=== PATIENT | female | born 1960 | race Caucasian/White ===

== ENCOUNTER 2024-10-02 10:15 | Inpatient (IN) ==
[2024-10-02] MEDS: methylPREDNISolone SOD SUCC 125 MG/2 ML VIAL IV ONE (10:39)
[2024-10-02 11:18] LABS: Basophils # (Auto) 0.01 K/mcL (0.00-0.30); Basophils % (Auto) 0.1 % (0.0-2.0); Eosinophils # (Auto) 0 K/mcL (0.00-0.70); Eosinophils % (Auto) 0 % (0.0-7.0); Hematocrit 51.3 % (34.1-44.9); Lymphocytes # (Auto) 0.69 K/mcL (1.50-4.80); Mean Corpuscular HGB Conc 31.2 g/dL (31.0-36.0); Mean Platelet Volume 9.5 fL (8.8-12.5); Monocytes # (Auto) 0.49 K/mcL (0.10-0.90); Neutrophils % (Auto) 87.4 % (38.0-78.0); Platelet Count 153 K/mcL (140-440); RBC 5.03 M/mcL (3.59-5.38); Red Cell Distribution Width 14.4 % (11.5-14.5); WBC 9.9 K/mcL (4.5-11.0)
[2024-10-02] MEDS: IPRATROPIUM/ALBUTEROL 3 ML AMPUL.NEB NEB ONE (11:18)
[2024-10-02] MEDS: cefTRIAXone 1 GM VIAL IV ONE (11:18)
[2024-10-02 11:41] LABS: ALT/SGPT 17 U/L (<40); AST/SGOT 30 U/L (<32); Albumin 3.6 gm/dL (3.2-5.2); Albumin/Globulin Ratio 1.1 (1.0-2.3); Alkaline Phosphatase 95 U/L (39-117); Bilirubin,Total 0.5 mg/dL (0.1-1.0); Blood Urea Nitrogen 22 mg/dL (8-23); Calcium 9.3 mg/dL (8.6-10.4); Carbon Dioxide 26 mmol/L (22-30); Chloride 103 mmol/L (96-108); Globulin 3.2 gm/dL (2.2-3.7); Glomerular Filtration Rate 68; Glucose 100 mg/dL (70-105); Potassium 3.6 mmol/L (3.3-5.1); Sodium 141 mmol/L (133-145)
[2024-10-02] MEDS: AZITHROMYCIN 500 MG in 0.9 % SODIUM CHLORIDE 250 ML IV ONE (11:43)
[2024-10-02] MEDS ORDERED: oxyCODONE IR 5 MG TABLET PO PRN (12:38)
[2024-10-02] MEDS ORDERED: ZOLPIDEM 5 MG TABLET PO PRN (12:38)
[2024-10-02] MEDS ORDERED: IBUPROFEN 600 MG TABLET PO PRN (12:38)
[2024-10-02] MEDS ORDERED: ACETAMINOPHEN 325 MG TABLET PO PRN (12:38)
[2024-10-02] MEDS ORDERED: MAG HYDROX/AL HYDROX/SIMETH 30 ML ORAL.SUSP PO PRN (12:38)
[2024-10-02] MEDS ORDERED: MAGNESIUM HYDROXIDE 30 ML ORAL.SUSP PO PRN (12:38)
[2024-10-02] MEDS ORDERED: ONDANSETRON 4 MG/2 ML VIAL IV PRN (12:38)
[2024-10-02] MEDS ORDERED: LORazepam 1 MG TABLET PO PRN (12:38)
[2024-10-02] MEDS: 0.9 % SODIUM CHLORIDE 1,000 ML IV SCH (13:09)
[2024-10-02] MEDS: MAGNESIUM SULFATE 2 GM/50 ML BAG IV ONE (13:09)
[2024-10-02] MEDS: 0.9 % SODIUM CHLORIDE 10 ML SYRINGE IV SCH (13:10)
[2024-10-02] MEDS: ALBUTEROL SULFATE 2.5 MG/3 ML NEBULIZER NEB PRN (13:35)
[2024-10-02] MEDS: GABAPENTIN 300 MG CAPSULE PO SCH (14:39)
[2024-10-02] MEDS: methylPREDNISolone SOD SUCC 40 MG/ML VIAL IV SCH (14:39)
[2024-10-02] MEDS: IPRATROPIUM/ALBUTEROL 3 ML AMPUL.NEB NEB SCH (15:20)
[2024-10-02 16:20] LABS: Appearance,Urine Cloudy (Clear); Bacteria,Urine Mod /hpf (0); Bilirubin,Urine Negative (Negative); Color,Urine Yellow; Glucose,Urine (UA) 100 mg/dL (Negative); Ketones,Urine Trace mg/dL (Negative); Leukocyte Esterase,Urine Negative /uL (Negative); Nitrate,Urine Positive (Negative); PH,Urine 5.5 (5.0-9.0); Protein,Urine 100 mg/dL (Negative); Specific Gravity,Urine >= 1.030 (1.000-1.035); Urine Blood Negative ery/mcL (Negative); Urine Hyaline Cast 10 /lph (0-2); Urine RBC 2 /hpf (0-3); Urine Squamous Epithelial Cell 4 /hpf (0-4); Urine WBC 11 /hpf (0-4); Urobilinogen,Urine Normal
[2024-10-02] MEDS: CARVEDILOL 6.25 MG TABLET PO SCH (16:53)
[2024-10-02] MEDS: guaiFENesin/DEXTROMETHORPHAN 5ML UD CUP PO PRN (20:13)
[2024-10-02] MEDS: OSELTAMIVIR PHOSPHATE 75 MG CAPSULE PO SCH (20:14)
[2024-10-02] MEDS: ENOXAPARIN 30 MG/0.3 ML SYRINGE SQ SCH (20:14)
[2024-10-02] MEDS: SENNOSIDES 1 TABLET PO SCH (20:14)
[2024-10-02] MEDS: DOCUSATE SODIUM 100 MG CAPSULE PO SCH (20:14)
[2024-10-03 06:49] LABS: ALT/SGPT 14 U/L (<40); AST/SGOT 22 U/L (<32); Albumin 3.3 gm/dL (3.2-5.2); Albumin/Globulin Ratio 1.1 (1.0-2.3); Alkaline Phosphatase 82 U/L (39-117); Bilirubin,Total 0.3 mg/dL (0.1-1.0); Blood Urea Nitrogen 27 mg/dL (8-23); Calcium 9.2 mg/dL (8.6-10.4); Carbon Dioxide 27 mmol/L (22-30); Chloride 108 mmol/L (96-108); Globulin 2.9 gm/dL (2.2-3.7); Glomerular Filtration Rate 68; Glucose 138 mg/dL (70-105); Potassium 4.1 mmol/L (3.3-5.1); Sodium 144 mmol/L (133-145)
[2024-10-03 07:36] LABS: Basophils # (Auto) 0 K/mcL (0.00-0.30); Basophils % (Auto) 0 % (0.0-2.0); Eosinophils # (Auto) 0 K/mcL (0.00-0.70); Eosinophils % (Auto) 0 % (0.0-7.0); Hematocrit 48.3 % (34.1-44.9); Lymphocytes # (Auto) 0.51 K/mcL (1.50-4.80); Lymphocytes % (Auto) 8.6 % (15.5-49.0); Mean Cell Volume 102.8 fL (80.0-100.0); Mean Corpuscular HGB Conc 31.1 g/dL (31.0-36.0); Mean Platelet Volume 9.4 fL (8.8-12.5); Monocytes # (Auto) 0.13 K/mcL (0.10-0.90); Monocytes % (Auto) 2.2 % (1.0-12.0); Neutrophils % (Auto) 88.2 % (38.0-78.0); Platelet Count 144 K/mcL (140-440); Red Cell Distribution Width 13.9 % (11.5-14.5)
[2024-10-03] MEDS: OMEPRAZOLE 20 MG CAPSULE PO SCH ×2 (07:55→17:01)
[2024-10-03] MEDS: ASPIRIN 81 MG TAB.CHEW CHEWED SCH (08:01)
[2024-10-03] MEDS: AZITHROMYCIN 500 MG in 0.9 % SODIUM CHLORIDE 250 ML IV SCH (09:57)
[2024-10-03] MEDS: cefTRIAXone 1 GM VIAL IV SCH (09:58)
[2024-10-03] MEDS ORDERED: ALBUTEROL SULFATE 60 PUFF INHALER INH PRN (10:39)
[2024-10-03] MEDS ORDERED: IBUPROFEN 800 MG TABLET PO PRN (10:39)
[2024-10-03] MEDS ORDERED: NAPROXEN 250 MG TABLET PO PRN (10:47)
[2024-10-03] MEDS ORDERED: ACTUATION MIST INH PRN (10:50)
[2024-10-03] MEDS ORDERED: IPRATROPIUM ALBUTEROL INH PRN (10:50)
[2024-10-03] MEDS: SERTRALINE 50 MG TABLET PO SCH ×2 (13:13→13:31)
[2024-10-03] MEDS: AZITHROMYCIN 250 MG TABLET PO SCH (13:13)
[2024-10-03] MEDS: BECLOMETHASONE DIPROPIONATE INH SCH (13:13)
[2024-10-03] MEDS ORDERED: GABAPENTIN 300 MG CAPSULE PO SCH (15:00)
[2024-10-03] MEDS: HYDROcodone/APAP 5/325MG TABLET PO PRN (21:33)
[2024-10-03] MEDS: FUROSEMIDE 40 MG/4 ML VIAL IV ONE (21:45)
[2024-10-04 06:45] LABS: Basophils # (Auto) 0.01 K/mcL (0.00-0.30); Basophils % (Auto) 0.1 % (0.0-2.0); Eosinophils # (Auto) 0 K/mcL (0.00-0.70); Eosinophils % (Auto) 0 % (0.0-7.0); Hemoglobin 15.4 g/dL (11.2-15.7); Lymphocytes # (Auto) 0.54 K/mcL (1.50-4.80); Lymphocytes % (Auto) 6.9 % (15.5-49.0); Mean Cell Volume 102.7 fL (80.0-100.0); Mean Corpuscular HGB Conc 31.4 g/dL (31.0-36.0); Mean Platelet Volume 9.4 fL (8.8-12.5); Monocytes # (Auto) 0.32 K/mcL (0.10-0.90); Monocytes % (Auto) 4.1 % (1.0-12.0); Neutrophils % (Auto) 87.9 % (38.0-78.0); Platelet Count 171 K/mcL (140-440); RBC 4.77 M/mcL (3.59-5.38); Red Cell Distribution Width 13.6 % (11.5-14.5); WBC 7.8 K/mcL (4.5-11.0)
[2024-10-04 06:51] LABS: ALT/SGPT 13 U/L (<40); AST/SGOT 18 U/L (<32); Albumin 3.3 gm/dL (3.2-5.2); Albumin/Globulin Ratio 1.2 (1.0-2.3); Alkaline Phosphatase 85 U/L (39-117); Bilirubin,Total 0.2 mg/dL (0.1-1.0); Blood Urea Nitrogen 36 mg/dL (8-23); Calcium 9.5 mg/dL (8.6-10.4); Carbon Dioxide 27 mmol/L (22-30); Chloride 107 mmol/L (96-108); Globulin 2.7 gm/dL (2.2-3.7); Glomerular Filtration Rate 68; Glucose 140 mg/dL (70-105); Sodium 143 mmol/L (133-145)
[2024-10-04] MEDS ORDERED: METOPROLOL SUCCINATE 25 MG TAB.XL.24H PO SCH (09:00)
[2024-10-04] MEDS ORDERED: ASPIRIN 81 MG TAB.CHEW PO SCH (09:00)
[2024-10-04] MEDS: MULTIVIT,THER IRON,CA,FA & MIN 1 TABLET PO SCH (09:20)
[2024-10-04] MEDS: SERTRALINE 100 MG TABLET PO SCH (09:20)
[2024-10-04] MEDS: amLODIPine 10 MG TABLET PO SCH (09:21)
[2024-10-04] MEDS: predniSONE 20 MG TABLET PO SCH (09:32)
[2024-10-04] MEDS: VITAMIN D3 10 MCG TABLET PO SCH (09:37)
[2024-10-05 06:05] LABS: Basophils # (Auto) 0.01 K/mcL (0.00-0.30); Basophils % (Auto) 0.1 % (0.0-2.0); Eosinophils # (Auto) 0 K/mcL (0.00-0.70); Eosinophils % (Auto) 0 % (0.0-7.0); Hematocrit 48.2 % (34.1-44.9); Lymphocytes # (Auto) 0.85 K/mcL (1.50-4.80); Lymphocytes % (Auto) 9.6 % (15.5-49.0); Mean Cell Volume 102.3 fL (80.0-100.0); Mean Corpuscular HGB Conc 31.1 g/dL (31.0-36.0); Monocytes % (Auto) 6.8 % (1.0-12.0); Neutrophils % (Auto) 81.6 % (38.0-78.0); Platelet Count 200 K/mcL (140-440); RBC 4.71 M/mcL (3.59-5.38); Red Cell Distribution Width 13.7 % (11.5-14.5); WBC 8.8 K/mcL (4.5-11.0)
[2024-10-05 06:32] LABS: ALT/SGPT 13 U/L (<40); AST/SGOT 18 U/L (<32); Albumin 3.3 gm/dL (3.2-5.2); Albumin/Globulin Ratio 1.2 (1.0-2.3); Alkaline Phosphatase 83 U/L (39-117); Bilirubin,Total < 0.2 mg/dL (0.1-1.0); Blood Urea Nitrogen 34 mg/dL (8-23); Calcium 9.8 mg/dL (8.6-10.4); Carbon Dioxide 29 mmol/L (22-30); Chloride 105 mmol/L (96-108); Globulin 2.8 gm/dL (2.2-3.7); Glomerular Filtration Rate 92; Glucose 124 mg/dL (70-105); Potassium 4.2 mmol/L (3.3-5.1); Sodium 141 mmol/L (133-145)
[2024-10-05] MEDS: FUROSEMIDE 20 MG/2 ML VIAL IV ONE (22:03)
[2024-10-06 06:40] LABS: Basophils # (Auto) 0 K/mcL (0.00-0.30); Basophils % (Auto) 0 % (0.0-2.0); Eosinophils # (Auto) 0 K/mcL (0.00-0.70); Eosinophils % (Auto) 0 % (0.0-7.0); Hematocrit 48.3 % (34.1-44.9); Hemoglobin 15.2 g/dL (11.2-15.7); Lymphocytes # (Auto) 1.26 K/mcL (1.50-4.80); Lymphocytes % (Auto) 20.3 % (15.5-49.0); Mean Cell Volume 101.7 fL (80.0-100.0); Mean Corpuscular HGB Conc 31.5 g/dL (31.0-36.0); Mean Platelet Volume 9.2 fL (8.8-12.5); Monocytes # (Auto) 0.63 K/mcL (0.10-0.90); Monocytes % (Auto) 10.1 % (1.0-12.0); Neutrophils % (Auto) 65.6 % (38.0-78.0); Platelet Count 189 K/mcL (140-440); RBC 4.75 M/mcL (3.59-5.38); Red Cell Distribution Width 13.7 % (11.5-14.5); WBC 6.2 K/mcL (4.5-11.0)
[2024-10-06 07:01] LABS: ALT/SGPT 14 U/L (<40); AST/SGOT 19 U/L (<32); Albumin 3.4 gm/dL (3.2-5.2); Albumin/Globulin Ratio 1.3 (1.0-2.3); Alkaline Phosphatase 83 U/L (39-117); Bilirubin,Total 0.2 mg/dL (0.1-1.0); Blood Urea Nitrogen 32 mg/dL (8-23); Calcium 9.7 mg/dL (8.6-10.4); Carbon Dioxide 31 mmol/L (22-30); Chloride 103 mmol/L (96-108); Globulin 2.7 gm/dL (2.2-3.7); Glomerular Filtration Rate 68; Glucose 85 mg/dL (70-105); Potassium 4.1 mmol/L (3.3-5.1); Sodium 143 mmol/L (133-145)
[2024-10-07 06:32] LABS: ALT/SGPT 13 U/L (<40); AST/SGOT 16 U/L (<32); Albumin 3.4 gm/dL (3.2-5.2); Albumin/Globulin Ratio 1.3 (1.0-2.3); Alkaline Phosphatase 82 U/L (39-117); Bilirubin,Direct < 0.2 mg/dL (0-0.3); Bilirubin,Total 0.2 mg/dL (0.1-1.0); Blood Urea Nitrogen 28 mg/dL (8-23); Calcium 9.4 mg/dL (8.6-10.4); Carbon Dioxide 30 mmol/L (22-30); Chloride 102 mmol/L (96-108); Globulin 2.7 gm/dL (2.2-3.7); Glomerular Filtration Rate 92; Glucose 96 mg/dL (70-105); Lactate Dehydrogenase 182 U/L (135-225); Phosphorous 2.7 mg/dL (2.5-4.5); Potassium 4.1 mmol/L (3.3-5.1); Sodium 140 mmol/L (133-145); Triglycerides 243 mg/dL (<150)
[2024-10-08] MEDS: IPRATROPIUM/ALBUTEROL 3 ML AMPUL.NEB NEB PRN (10:43)
[2024-10-08] MEDS: FUROSEMIDE 100 MG/10 ML VIAL IV ONE (11:34)
[2024-10-09] MEDS: FUROSEMIDE 40 MG/4 ML VIAL IV SCH (08:31)
[2024-10-09] MEDS: HYDROCHLOROTHIAZIDE 25 MG TABLET PO SCH (08:32)
[2024-10-09 12:36] VITALS: TEMP 98.1; O2SAT 95
== END 2024-10-09 12:33 | DRG 193 ==
LOC: ED 10:15 → ICU 12:22 → MEDSUR 10-07 16:40
PROVIDERS: ADMIT Internal Medicine; ATTEND Internal Medicine